=== PATIENT | male | born 1975 | race Caucasian/White ===

== ENCOUNTER 2018-04-09 16:33 | Inpatient (IN) ==
[2018-04-09 17:04] LABS: Apearance,Urine CLEAR (Clear); Bilirubin,Urine Negative (Negative); Blood, Urine Negative (Negative); Glucose,Urine (UA) Negative (Negative); Ketones,Urine Negative (Negative); Nitrite,Urine Negative (Negative); Protein,Urine Negative; Urine Color Straw (Yellow); Urine Specific Gravity 1.008 (1.001-1.035); Urine Urobilinogen < 2.0 EU/DL (0.2-1.0); WBC,Urine <1 /HPF (0-6)
[2018-04-09 17:11] LABS: Barbiturates Screen,Urine Positive (Negative); Basophils # 0.1 10*3/uL (0.0-0.2); Basophils % 1.2 % (0.0-0.8); Benzodiazepines Screen,Urine Negative (Negative); Cannabinoid Screen,Urine Negative (Negative); Eosinophils # 0.1 10*3/uL (0.0-0.87); Eosinophils % 1.1 % (0.00-10.9); Hematocrit 47.9 VOL% (42.0-52.0); Immature Granulocytes % 0.4 %; Immature Granulocytes Absolute 0.03 #; Lymphocytes # 2.2 10*3/uL (1.4-4.0); Mean Corpuscular HGB Conc 33.4 GM/DL (32-36); Mean Corpuscular Hemoglobin 30 PG (27-34); Mean Corpuscular Volume 90.2 FL (87-102); Monocytes # 0.5 10*3/uL (0.11-0.8); Monocytes % 6.2 % (1.7-12.7); Neutrophils # 4.7 10*3/uL (1.4-7.4); Neutrophils % 62.1 % (38.7-73.9); Opiate Screen,Urine Negative (Negative); Phencyclidine Screen,Urine Negative (Negative); Platelet Count 283 T/CUMM (130-400); Red Blood Count 5.31 MC/CUMM (3.8-5.5); Red Cell Distribution Width 13.2 % (9.3-17.3); White Blood Count 7.6 T/CUMM (4-12)
[2018-04-09 17:34] LABS: INR 0.9; PT Patient Result 9.6 SECS; Partial Thromboplastin Time 24.5 SECS (0-40)
[2018-04-09 17:35] LABS: Alanine Aminotransferase 95 U/L (16-61); Albumin 4.1 G/DL (3.4-5.0); Alkaline Phosphatase 98 U/L (45-117); Aspartate Amino Transferase 48 U/L (0-37); Blood Urea Nitrogen 15 MG/DL (7-18); Calcium 8.7 MG/DL (8.5-10.1); Glucose 110 MG/DL (74-106); Osmolality,Calculated 278.5 MOS/KG (273-304); Potassium 3.8 MMOL/L (3.5-5.1); Sodium 139 MMOL/L (136-145); Total Protein 8.1 G/DL (6.4-8.3); Troponin I < 0.015 NG/ML (0.00-0.045)
[2018-04-09] MEDS ORDERED: ASPIRIN CHEW 81 MG TABLET PO STA (18:19)
[2018-04-09] MEDS ORDERED: FAMOTIDINE 20 MG/2 ML VIAL IV STA (18:20)
[2018-04-09] MEDS ORDERED: PROCHLORPERAZINE 10 MG TABLET ONE (18:37)
[2018-04-09] MEDS ORDERED: PROCHLORPERAZINE 10 MG TABLET PO STA (18:41)
[2018-04-09] MEDS: ENOXAPARIN 40 MG/0.4 ML SYRINGE SUBCUT SCH (21:55)
[2018-04-09] MEDS: SODIUM CHLORIDE 0.9% 1,000 ML IV SCH (22:17)
[2018-04-09] MEDS: PROMETHAZINE INJ 12.5 MG in SODIUM CHLORIDE 0.9% 50 ML IV PRN (22:17)
[2018-04-10 04:30] LABS: Basophils # 0.1 10*3/uL (0.0-0.2); Basophils % 1.3 % (0.0-0.8); Eosinophils # 0.1 10*3/uL (0.0-0.87); Eosinophils % 1.6 % (0.00-10.9); Hematocrit 40.7 VOL% (42.0-52.0); Hemoglobin 13.9 GM/DL (14.0-18.0); Immature Granulocytes % 0.4 %; Immature Granulocytes Absolute 0.02 #; Lymphocytes # 2.1 10*3/uL (1.4-4.0); Lymphocytes % 37.8 % (21.2-54.2); Mean Corpuscular HGB Conc 34.2 GM/DL (32-36); Mean Corpuscular Hemoglobin 30 PG (27-34); Mean Corpuscular Volume 88.5 FL (87-102); Mean Platelet Volume 9.4 FL (9.6-12.0); Monocytes # 0.4 10*3/uL (0.11-0.8); Monocytes % 6.3 % (1.7-12.7); Neutrophils # 2.9 10*3/uL (1.4-7.4); Neutrophils % 52.6 % (38.7-73.9); Platelet Count 249 T/CUMM (130-400); Red Cell Distribution Width 13.2 % (9.3-17.3); White Blood Count 5.6 T/CUMM (4-12)
[2018-04-10 05:10] LABS: Alanine Aminotransferase 67 U/L (16-61); Albumin 3.1 G/DL (3.4-5.0); Alkaline Phosphatase 79 U/L (45-117); Aspartate Amino Transferase 28 U/L (0-37); Bilirubin,Total < 0.39 MG/DL (0.2-1.0); Blood Urea Nitrogen 15 MG/DL (7-18); Calcium 8.1 MG/DL (8.5-10.1); Cholesterol 164 MG/DL (50-200); Glucose 140 MG/DL (74-106); HDL Cholesterol 20 MG/DL (40-60); Osmolality,Calculated 285.1 MOS/KG (273-304); Potassium 3.4 MMOL/L (3.5-5.1); Sodium 142 MMOL/L (136-145); Total Protein 6.3 G/DL (6.4-8.3); Triglycerides 562 MG/DL (2-150); VLDL CHOLESTEROL 112.4 MG/DL
[2018-04-10] MEDS: PANTOPRAZOLE 40 MG TABLET PO SCH (08:47)
[2018-04-10] MEDS: POTASSIUM CHLORIDE 20 MEQ TABLET PO PRN ×3 (08:48→13:22)
[2018-04-10] MEDS: ASPIRIN CHEW 81 MG TABLET PO SCH (08:48)
[2018-04-10] MEDS: MORPHINE 4 MG/1 ML VIAL IV PRN ×3 (09:25→22:51)
[2018-04-10] MEDS: PROMETHAZINE INJ 12.5 MG in SODIUM CHLORIDE 0.9% 50 ML IV PRN ×2 (10:26→22:50)
[2018-04-10] MEDS: SODIUM CHLORIDE 0.9% 1,000 ML IV SCH (10:27)
[2018-04-10] MEDS ORDERED: ALUM/MAG/SIMETH/LIDO VISC 1:1 30 ML BOTTLE PO ONE (13:39)
[2018-04-10] MEDS ORDERED: SERTRALINE 25 MG TABLET PO ONE (13:46)
[2018-04-10] MEDS: ACETAMINOPHEN 325 MG TABLET PO SCH ×2 (14:20→20:45)
[2018-04-10] MEDS: GABAPENTIN 100 MG CAPSULE PO SCH ×3 (14:20→20:44)
[2018-04-10] MEDS: traMADol 50 MG TABLET PO SCH ×2 (14:21→20:44)
[2018-04-10 15:26] LABS: Troponin I < 0.015 NG/ML (0.00-0.045)
[2018-04-10 20:10] LABS: Troponin I < 0.015 NG/ML (0.00-0.045)
[2018-04-10] MEDS: ENOXAPARIN 40 MG/0.4 ML SYRINGE SUBCUT SCH (20:43)
[2018-04-10] MEDS: SERTRALINE 25 MG TABLET PO SCH (20:44)
[2018-04-10] MEDS: OMEGA 3 ACID ETHYL ESTERS 1 GM CAPSULE PO SCH (20:44)
[2018-04-10] MEDS ORDERED: ROSUVASTATIN 10 MG TABLET PO SCH (21:00)
[2018-04-10] MEDS: ALPRAZolam 0.5 MG TABLET PO PRN (22:51)
[2018-04-11] MEDS: SODIUM CHLORIDE 0.9% 1,000 ML IV SCH ×3 (02:41→21:29)
[2018-04-11 04:03] LABS: Basophils # 0.1 10*3/uL (0.0-0.2); Basophils % 1.2 % (0.0-0.8); Eosinophils # 0.1 10*3/uL (0.0-0.87); Eosinophils % 2.1 % (0.00-10.9); Hematocrit 40.4 VOL% (42.0-52.0); Hemoglobin 13.7 GM/DL (14.0-18.0); Immature Granulocytes % 0.4 %; Immature Granulocytes Absolute 0.02 #; Lymphocytes # 2.1 10*3/uL (1.4-4.0); Lymphocytes % 39.8 % (21.2-54.2); Mean Corpuscular HGB Conc 33.9 GM/DL (32-36); Mean Corpuscular Hemoglobin 30 PG (27-34); Mean Corpuscular Volume 88.6 FL (87-102); Mean Platelet Volume 9.2 FL (9.6-12.0); Monocytes # 0.4 10*3/uL (0.11-0.8); Monocytes % 8.1 % (1.7-12.7); Neutrophils # 2.5 10*3/uL (1.4-7.4); Neutrophils % 48.4 % (38.7-73.9); Platelet Count 229 T/CUMM (130-400); Red Blood Count 4.56 MC/CUMM (3.8-5.5); Red Cell Distribution Width 13.1 % (9.3-17.3); White Blood Count 5.2 T/CUMM (4-12)
[2018-04-11 04:22] LABS: Calcium 8.4 MG/DL (8.5-10.1); Osmolality,Calculated 280.3 MOS/KG (273-304); Potassium 3.7 MMOL/L (3.5-5.1)
[2018-04-11 04:25] LABS: Troponin I < 0.015 NG/ML (0.00-0.045)
[2018-04-11 04:27] LABS: % Iron Saturation 37.4 % (18-50); Ferritin 142.1 ng/ml (26-388)
[2018-04-11] MEDS: POTASSIUM CHLORIDE 20 MEQ TABLET PO PRN (04:33)
[2018-04-11] MEDS: MORPHINE 4 MG/1 ML VIAL IV PRN ×4 (04:34→23:51)
[2018-04-11] MEDS: PROMETHAZINE INJ 12.5 MG in SODIUM CHLORIDE 0.9% 50 ML IV PRN ×4 (04:34→23:52)
[2018-04-11 04:35] LABS: Folate 8.8 NG/ML (5.4-24.0); Vitamin B12 240 PG/ML (211-911)
[2018-04-11 05:16] LABS: Hepatitis A Ab IgM Quant 0.07 Index; Hepatitis A Ab IgM Result Negative (Negative); Hepatitis B Core IgM Quant 0.09 Index; Hepatitis B Core IgM Result Negative (Negative); Hepatitis B Surface Ag Quant 0.18 Index; Hepatitis B Surface Ag Result Negative (Negative); Hepatitis C Virus Ab Quant 0.09 Index; Hepatitis C Virus Ab Result Negative (Negative)
[2018-04-11 05:20] LABS: Sedimentation Rate-Westergren 17 MM/HR (0-15)
[2018-04-11] MEDS: OMEGA 3 ACID ETHYL ESTERS 1 GM CAPSULE PO SCH ×2 (08:40→21:25)
[2018-04-11] MEDS: ASPIRIN CHEW 81 MG TABLET PO SCH (08:40)
[2018-04-11] MEDS: GABAPENTIN 100 MG CAPSULE PO SCH ×3 (08:40→21:23)
[2018-04-11] MEDS: ALPRAZolam 0.5 MG TABLET PO PRN (08:40)
[2018-04-11] MEDS: PANTOPRAZOLE 40 MG TABLET PO SCH (08:40)
[2018-04-11] MEDS: traMADol 50 MG TABLET PO SCH ×2 (08:41→21:28)
[2018-04-11] MEDS: ACETAMINOPHEN 325 MG TABLET PO SCH ×2 (08:41→21:24)
[2018-04-11] MEDS ORDERED: CYANOCOBALAMIN 1000 MCG/1 ML VIAL SUBCUT ONE (09:25)
[2018-04-11 09:38] LABS: Hemoglobin A1 (Alkaline) 97.1 % (96.5-98.5); Hemoglobin A2 (Alkaline) 2.9 % (1.5-3.5)
[2018-04-11 11:03] LABS: Troponin I < 0.015 NG/ML (0.00-0.045)
[2018-04-11] MEDS: SERTRALINE 25 MG TABLET PO SCH (21:24)
[2018-04-11] MEDS: ENOXAPARIN 40 MG/0.4 ML SYRINGE SUBCUT SCH (21:25)
[2018-04-12] MEDS: SODIUM CHLORIDE 0.9% 1,000 ML IV SCH ×3 (01:35→15:34)
[2018-04-12 03:51] LABS: Basophils # 0.1 10*3/uL (0.0-0.2); Basophils % 1.4 % (0.0-0.8); Eosinophils # 0.1 10*3/uL (0.0-0.87); Eosinophils % 2.2 % (0.00-10.9); Hematocrit 40.6 VOL% (42.0-52.0); Hemoglobin 13.5 GM/DL (14.0-18.0); Immature Granulocytes % 0.4 %; Immature Granulocytes Absolute 0.02 #; Lymphocytes # 1.9 10*3/uL (1.4-4.0); Lymphocytes % 37.6 % (21.2-54.2); Mean Corpuscular HGB Conc 33.3 GM/DL (32-36); Mean Corpuscular Hemoglobin 30 PG (27-34); Mean Corpuscular Volume 89.8 FL (87-102); Mean Platelet Volume 9.1 FL (9.6-12.0); Monocytes # 0.4 10*3/uL (0.11-0.8); Monocytes % 7.2 % (1.7-12.7); Neutrophils # 2.6 10*3/uL (1.4-7.4); Neutrophils % 51.2 % (38.7-73.9); Platelet Count 226 T/CUMM (130-400); Red Blood Count 4.52 MC/CUMM (3.8-5.5); White Blood Count 5.1 T/CUMM (4-12)
[2018-04-12 04:09] LABS: Calcium 8.5 MG/DL (8.5-10.1); Osmolality,Calculated 280.3 MOS/KG (273-304)
[2018-04-12 04:14] LABS: Albumin 3.5 G/DL (3.4-5.0); Bilirubin,Total 0.6 MG/DL (0.2-1.0); Calcium 8.5 MG/DL (8.5-10.1); Osmolality,Calculated 278.4 MOS/KG (273-304); Total Protein 6.7 G/DL (6.4-8.3)
[2018-04-12] MEDS: PROMETHAZINE INJ 12.5 MG in SODIUM CHLORIDE 0.9% 50 ML IV PRN ×4 (05:02→22:27)
[2018-04-12] MEDS: MORPHINE 4 MG/1 ML VIAL IV PRN ×4 (05:02→22:28)
[2018-04-12] MEDS ORDERED: COSYNTROPIN 0.25 MG VIAL IV ONE (08:00)
[2018-04-12] MEDS: CYANOCOBALAMIN 500 MCG TABLET PO SCH (08:16)
[2018-04-12] MEDS: ASPIRIN CHEW 81 MG TABLET PO SCH (08:16)
[2018-04-12] MEDS: OMEGA 3 ACID ETHYL ESTERS 1 GM CAPSULE PO SCH ×2 (08:16→20:29)
[2018-04-12] MEDS: PANTOPRAZOLE 40 MG TABLET PO SCH (08:16)
[2018-04-12] MEDS: traMADol 50 MG TABLET PO SCH ×2 (08:17→20:28)
[2018-04-12] MEDS: GABAPENTIN 100 MG CAPSULE PO SCH ×3 (08:17→20:28)
[2018-04-12] MEDS: ALPRAZolam 0.5 MG TABLET PO PRN ×2 (08:17→22:32)
[2018-04-12] MEDS: ACETAMINOPHEN 325 MG TABLET PO SCH ×2 (08:17→20:28)
[2018-04-12] MEDS ORDERED: HYDROCORTISONE 100 MG VIAL IV ONE (14:30)
[2018-04-12 14:45] LABS: Free T4 (Free Thyroxine) 0.89 NG/DL (0.76-1.46)
[2018-04-12] MEDS ORDERED: HYDROCORTISONE 10 MG TABLET PO SCH (15:00)
[2018-04-12] MEDS: ENOXAPARIN 40 MG/0.4 ML SYRINGE SUBCUT SCH (20:30)
[2018-04-12] MEDS ORDERED: SERTRALINE 50 MG TABLET PO SCH (21:00)
[2018-04-13 03:08] LABS: Basophils # 0.1 10*3/uL (0.0-0.2); Basophils % 1.1 % (0.0-0.8); Eosinophils # 0.1 10*3/uL (0.0-0.87); Eosinophils % 1.8 % (0.00-10.9); Hematocrit 38.9 VOL% (42.0-52.0); Hemoglobin 13.4 GM/DL (14.0-18.0); Immature Granulocytes % 0.4 %; Immature Granulocytes Absolute 0.02 #; Lymphocytes # 1.9 10*3/uL (1.4-4.0); Lymphocytes % 34.9 % (21.2-54.2); Mean Corpuscular HGB Conc 34.4 GM/DL (32-36); Mean Corpuscular Hemoglobin 30 PG (27-34); Mean Corpuscular Volume 87.2 FL (87-102); Mean Platelet Volume 9.3 FL (9.6-12.0); Monocytes # 0.4 10*3/uL (0.11-0.8); Monocytes % 6.6 % (1.7-12.7); Neutrophils % 55.2 % (38.7-73.9); Platelet Count 248 T/CUMM (130-400); Red Blood Count 4.46 MC/CUMM (3.8-5.5); Red Cell Distribution Width 12.8 % (9.3-17.3); White Blood Count 5.4 T/CUMM (4-12)
[2018-04-13] MEDS: PROMETHAZINE INJ 12.5 MG in SODIUM CHLORIDE 0.9% 50 ML IV PRN ×2 (03:12→08:32)
[2018-04-13] MEDS: SODIUM CHLORIDE 0.9% 1,000 ML IV SCH ×2 (03:15→04:57)
[2018-04-13] MEDS: MORPHINE 4 MG/1 ML VIAL IV PRN ×2 (03:18→08:29)
[2018-04-13 03:35] LABS: Calcium 8.2 MG/DL (8.5-10.1); Osmolality,Calculated 284.3 MOS/KG (273-304); Potassium 4.1 MMOL/L (3.5-5.1)
[2018-04-13 03:44] LABS: Follicle Stimulating Hormone 10.3 MIU/ML; Luteinizing Hormone 2.9 MIU/ML; Prolactin 13.3 NG/ML
[2018-04-13 08:26] VITALS: BP 95/58
[2018-04-13] MEDS: GABAPENTIN 100 MG CAPSULE PO SCH (08:29)
[2018-04-13] MEDS: OMEGA 3 ACID ETHYL ESTERS 1 GM CAPSULE PO SCH (08:29)
[2018-04-13] MEDS: CYANOCOBALAMIN 500 MCG TABLET PO SCH (08:29)
[2018-04-13] MEDS: ASPIRIN CHEW 81 MG TABLET PO SCH (08:29)
[2018-04-13] MEDS: traMADol 50 MG TABLET PO SCH (08:30)
[2018-04-13] MEDS: PANTOPRAZOLE 40 MG TABLET PO SCH (08:30)
[2018-04-13] MEDS: ACETAMINOPHEN 325 MG TABLET PO SCH (08:30)
[2018-04-13] MEDS: ALPRAZolam 0.5 MG TABLET PO PRN (08:33)
[2018-04-13] MEDS ORDERED: HYDROCORTISONE 10 MG TABLET PO SCH ×2 (09:00)
[2018-04-15 14:50] LABS: Renin Activity 1.9 ng/mL/h
[2018-04-17 18:01] LABS: Testosterone,Total 71 ng/dL (240-950)
== END 2018-04-13 11:35 | disposition home or self-care (01) | DRG 880 ==
LOC: N.ED 16:33 → N.EDINP 20:07 → N.TELES 20:28
PROVIDERS: ADMIT Hospitalist; ATTEND Hospitalist